=== PATIENT | male | born 1940 | race Caucasian/White ===

== ENCOUNTER 2017-05-20 01:32 | Inpatient (IN) | payer MEDICARE, OTHER ==
[~2017-05-20] VITALS: Ht 165.1 cm; Wt 87.0 kg
[2017-05-20] MEDS ORDERED: CARV3 PO (01:44)
[2017-05-20] MEDS ORDERED: FAMO20 PO (01:44)
[2017-05-20] MEDS ORDERED: LOSA50TA37 PO (01:44)
[2017-05-20] MEDS ORDERED: ATOR40TA28 PO (01:44)
[2017-05-20] MEDS ORDERED: CALC-1009 PO (01:44)
[2017-05-20] MEDS ORDERED: IPRATROPIUM BROMIDE 0.5 MG/2.5 ML NEB SOLUTION NEB ONE (02:00)
[2017-05-20] MEDS ORDERED: ALBUTEROL SULFATE 2.5 MG/0.5 ML NEB SOLUTION NEB ONE (02:00)
[2017-05-20 02:27] LABS: HEMATOCRIT 33.9 % (41-53); HEMOGLOBIN 10.9 g/dL (13.5-17.5); MEAN CORPUSCULAR HEMOGLOBIN 30.5 pg (26.0-34.0); MEAN CORPUSCULAR HGB CONC 32.2 G/dL (31.0-37.0); MEAN CORPUSCULAR VOLUME 95 fL (80-100); PLATELET COUNT (AUTO) 234 K/uL (150-450); RED BLOOD CELL COUNT(AUTO) 3.57 MIL/uL (4.50-5.90)
[2017-05-20 02:38] LABS: INR 1.1 (0.9-1.1); PROTHROMBIN TIME 11.3 SEC (9.4-11.6)
[2017-05-20 02:39] LABS: ANION GAP 8 mmol/L (8-16); CALCIUM, TOTAL 8.7 mg/dL (8.8-10.5); CARBON DIOXIDE 26 mmol/L (22-29); CHLORIDE 108 mmol/L (98-107); CREATININE 2.12 mg/dL (0.60-1.30); GLOMERULAR FILTR. RATE CALC 31 mL/min (>60); GLUCOSE,RANDOM 149 mg/dL (70-110); POTASSIUM 3.9 mmol/L (3.5-5.1); SODIUM SERUM 142 mmol/L (136-145); UREA NITROGEN, BLOOD 30 mg/dL (7-18)
[2017-05-20 02:56] LABS: BAND NEUTROPHILS % (MANUAL) 9 % (1-5); LYMPHOCYTES % (MANUAL) 12 % (22-44); METAMYELOCYTES % 2 % (0-0); MONOCYTES % (MANUAL) 7 % (2-9); SEGMENTED NEUTROPHILS % 70 % (40-70)
[2017-05-20 03:02] LABS: B-TYPE NATRIURETIC PEPTIDE 560 pg/mL (0-100)
[2017-05-20 03:05] LABS: ALANINE AMINOTRANSFERASE 29 U/L (12-78); ALBUMIN 2.4 g/dL (3.4-5.0); ALKALINE PHOSPHATASE 98 U/L (46-116); ASPARTATE AMINOTRANSFERASE 27 U/L (15-37); BILIRUBIN,TOTAL 0.7 mg/dL (0.1-1.0); CREATINE KINASE MB 1.2 ng/mL (0-5); CREATINE KINASE, TOTAL 147 U/L (39-308); TOTAL PROTEIN, SERUM 7.1 g/dL (6.4-8.2)
[2017-05-20] MEDS ORDERED: SODIUM CHLORIDE 0.9% 1,000 ML IV ONE ×2 (03:12→07:30)
[2017-05-20] MEDS ORDERED: AZITHROMYCIN 500 MG/NS 250 ML IV ONE (03:15)
[2017-05-20] MEDS ORDERED: CefTRIAXone 1 GM/DEXTROSE 50 ML IV ONE (03:15)
[2017-05-20 04:15] VITALS: BP 98/61
[2017-05-20] MEDS ORDERED: 0.9% SODIUM CHLORIDE 10 ML SYRINGE IVP PRN (04:15)
[2017-05-20] MEDS ORDERED: ONDANSETRON HCL 4 MG/2 ML VIAL IVP PRN (04:15)
[2017-05-20] MEDS ORDERED: ACETAMINOPHEN 325 MG TABLET PO PRN ×2 (04:15→07:15)
[2017-05-20] MEDS ORDERED: BISACODYL 10 MG RECTAL RECTAL SUPPOSITORY PR PRN (07:15)
[2017-05-20] MEDS ORDERED: OxyCODONE HCL/ACETAMINOPHEN 5-325 MG TABLET PO PRN (07:15)
[2017-05-20] MEDS ORDERED: *CLINICAL-LEVOFLOXACIN IVPB DOSING CLINICAL ONE (07:30)
[2017-05-20] MEDS: LEVOFLOXACIN 750 MG/D5% WATER 150 ML IV SCH (08:10)
[2017-05-20] MEDS: MethylPREDNISolone SOD SUCC 125 MG/2 ML VIAL IVP SCH ×3 (08:12→23:42)
[2017-05-20 08:25] VITALS: BP 114/58
[2017-05-20] MEDS: ASPIRIN 81 MG CHEWABLE TABLET PO SCH (08:47)
[2017-05-20] MEDS: DOCUSATE SODIUM 100 MG CAPSULE PO SCH ×2 (08:47→21:00)
[2017-05-20] MEDS: PANTOPRAZOLE SODIUM 40 MG DR TABLET PO SCH (08:51)
[2017-05-20] MEDS: HEPARIN SODIUM,PORCINE 5,000 UNITS/ML VIAL SQ SCH ×2 (08:52→21:09)
[2017-05-20] MEDS: IPRATROPIUM BROMIDE 0.5 MG/2.5 ML NEB SOLUTION NEB SCH ×4 (11:27→23:14)
[2017-05-20] MEDS: ALBUTEROL SULFATE 2.5 MG/0.5 ML NEB SOLUTION NEB SCH ×4 (11:27→23:14)
[2017-05-20 12:00] VITALS: BP 121/74
[2017-05-20 16:00] VITALS: BP 111/70
[2017-05-20 20:35] VITALS: BP 149/81
[2017-05-21 00:07] VITALS: BP 147/87
[2017-05-21] MEDS: ALBUTEROL SULFATE 2.5 MG/0.5 ML NEB SOLUTION NEB SCH ×6 (03:11→22:57)
[2017-05-21] MEDS: IPRATROPIUM BROMIDE 0.5 MG/2.5 ML NEB SOLUTION NEB SCH ×6 (03:11→22:57)
[2017-05-21 05:20] VITALS: BP 149/95
[2017-05-21 07:26] LABS: EOSINOPHILS % (AUTO) 0 % (1.0-6.0); HEMATOCRIT 33.9 % (41-53); LYMPHOCYTES % (AUTO) 5.4 % (22.0-44.0); MEAN CORPUSCULAR HEMOGLOBIN 30.9 pg (26.0-34.0); MEAN CORPUSCULAR HGB CONC 32.5 G/dL (31.0-37.0); MEAN CORPUSCULAR VOLUME 95 fL (80-100); MONOCYTES # (AUTO) 0.4 K/uL (0.1-1.0); PLATELET COUNT (AUTO) 290 K/uL (150-450); RED BLOOD CELL COUNT(AUTO) 3.57 MIL/uL (4.50-5.90)
[2017-05-21 07:54] VITALS: BP 144/98
[2017-05-21 07:58] LABS: CALCIUM, TOTAL 8.7 mg/dL (8.8-10.5); CREATININE 1.32 mg/dL (0.60-1.30); POTASSIUM 3.8 mmol/L (3.5-5.1)
[2017-05-21 08:17] LABS: NEUTROPHILS % (AUTO) 92.6 % (40.0-70.0)
[2017-05-21] MEDS: PANTOPRAZOLE SODIUM 40 MG DR TABLET PO SCH (08:23)
[2017-05-21] MEDS: MethylPREDNISolone SOD SUCC 125 MG/2 ML VIAL IVP SCH ×3 (08:23→23:42)
[2017-05-21] MEDS: DOCUSATE SODIUM 100 MG CAPSULE PO SCH ×2 (08:23→20:33)
[2017-05-21] MEDS: HEPARIN SODIUM,PORCINE 5,000 UNITS/ML VIAL SQ SCH ×2 (08:23→20:33)
[2017-05-21] MEDS: ASPIRIN 81 MG CHEWABLE TABLET PO SCH (08:23)
[2017-05-21 12:27] VITALS: BP 138/91
[2017-05-21 15:26] VITALS: BP 130/95
[2017-05-21 19:59] VITALS: BP 146/90
[2017-05-22 00:13] VITALS: BP 153/76
[2017-05-22] MEDS: IPRATROPIUM BROMIDE 0.5 MG/2.5 ML NEB SOLUTION NEB SCH ×5 (03:20→20:09)
[2017-05-22] MEDS: ALBUTEROL SULFATE 2.5 MG/0.5 ML NEB SOLUTION NEB SCH ×5 (03:20→20:09)
[2017-05-22 04:20] VITALS: BP 143/94
[2017-05-22 07:16] VITALS: BP 134/99
[2017-05-22] MEDS: DOCUSATE SODIUM 100 MG CAPSULE PO SCH (08:28)
[2017-05-22] MEDS: ASPIRIN 81 MG CHEWABLE TABLET PO SCH (08:28)
[2017-05-22] MEDS: PANTOPRAZOLE SODIUM 40 MG DR TABLET PO SCH (08:28)
[2017-05-22] MEDS: MethylPREDNISolone SOD SUCC 125 MG/2 ML VIAL IVP SCH ×2 (08:29→16:59)
[2017-05-22] MEDS: LEVOFLOXACIN 750 MG/D5% WATER 150 ML IV SCH (08:29)
[2017-05-22] MEDS: HEPARIN SODIUM,PORCINE 5,000 UNITS/ML VIAL SQ SCH (08:29)
[2017-05-22 11:35] VITALS: BP 149/94
[2017-05-22 15:26] VITALS: BP 135/99
[2017-05-22] MEDS ORDERED: IPRNEB IH (17:50)
[2017-05-22] MEDS ORDERED: AUD NEB (17:50)
[2017-05-22] MEDS ORDERED: ASPI-556 PO (17:51)
[2017-05-22] MEDS ORDERED: IPRA3AMP4 NEB (17:51)
[2017-05-22] MEDS ORDERED: PRED20 PO (17:53)
[2017-05-22] MEDS ORDERED: PRED5 PO ×2 (17:54→17:56)
== END 2017-05-22 20:24 | disposition home or self-care (01) | DRG 315 ==
LOC: EMS 01:33 → AHU 04:41 → EMS 04:57 → 5S 19:18
PROVIDERS: ADMIT Internal Medicine; ATTEND Internal Medicine
DX: I95.9 Hypotension, unspecified (principal); J44.1 Chronic obstructive pulmonary disease with (acute) exacerbation; N17.9 Acute kidney failure, unspecified; Z93.1 Gastrostomy status; I10 Essential (primary) hypertension; J45.909 Unspecified asthma, uncomplicated; E78.00 Pure hypercholesterolemia, unspecified; I25.10 Atherosclerotic heart disease of native coronary artery without angina pectoris; Z79.899 Other long term (current) drug therapy; Z87.01 Personal history of pneumonia (recurrent); Z98.49 Cataract extraction status, unspecified eye; Z87.11 Personal history of peptic ulcer disease; Z87.891 Personal history of nicotine dependence
CPT/HCPCS: 82306; 83605; 87040; 93005; 93306; 94640; 96365; 99285; J0456; J0696; J1644; J1956; J2930; J7030